=== PATIENT | female | born 1995 | race Asian ===

== ENCOUNTER → 2016-08-30 11:19 | Emergency (ER) | payer OTHER ==
[2016-08-30 11:30] VITALS: BP 135/73
--- NOTE | 2016-08-30 12:04 | ED ---
Lower Extremity - History of Current Complaint Chief Complaint: EDExtremityLower Stated Complaint: BOTH ANKLES SWOLLEN Time Seen by Provider: 08/30/16 11:35 Hx Obtained From: Patient Mechanism Of Injury: Fall From Height Of: - 3.5 foot wall after jumping edge of it Onset of Pain: Immediate - last night, was able to walk home with pain, this am very swollen and black and blue and swelling Onset/Duration: Hours - 12 Severity Initially: Moderate Severity Currently: Mild Pain Intensity: 3 Location: Is Discrete @ - bilateral ankle/feet Character Of Pain: Throbbing, Stiffness Associated Signs And Symptoms: Positive: Swelling, Bruising Aggravating Factor(s): Standing, Ambulation Alleviating Factor(s): Rest, Elevation, Ice Able to Bear Weight: Yes - with pain and support PMH/Surg Hx/FS Hx/Imm Hx Previously Healthy: Yes Endocrine/Hematology History: Denies: Hx Blood Disorders Cardiovascular History: Denies: Hx Hypertension Respiratory History: Denies: Hx Asthma GI History: Denies: Other GI Disorders History: Denies: Other Problems/Disorders Musculoskeletal History: Denies: Other Musculoskeletal History Neurological History: Denies: Other Neuro Impairments/Disorders Psychiatric History: Denies: Hx Anxiety, Hx Depression - Immunization History Immunizations Up to Date: Yes - 2015 Infectious Disease History: No Infectious Disease History: Denies: Traveled Outside the [place] in Last 30 Days - Family History Known Family History: Positive: None - Social History Occupation: Student Lives: With Family Alcohol Use: None Hx Substance Use: No Smoking Status (MU): Never Smoked Tobacco Review of Systems Constitutional: Negative Cardiovascular: Negative Respiratory: Negative Gastrointestinal: Negative Musculoskeletal: Other - bilateral ankle/foot pain Positive: Bruising, Other - abrasions feet Neurological: Negative Psychological: Normal All Other Systems Reviewed And Are Negative: Yes Physical Exam Triage Information Reviewed: Yes Vital Signs On Initial Exam: Initial Vitals Temp Pulse Resp BP Pulse Ox 99.9 F 111 20 135/73 100 08/30/16 11:25 08/30/16 11:25 08/30/16 11:25 08/30/16 11:25 08/30/16 11:25 Vital Signs Reviewed: Yes Appearance: Positive: Well-Appearing, No Pain Distress, Well-Nourished Skin: Positive: Warm, Skin Color Reflects Adequate Perfusion, Dry Respiratory/Lung Sounds: Positive: Clear to Auscultation Cardiovascular: Positive: Normal, RRR, Pulses are Symmetrical in both Upper and Lower Extremities Musculoskeletal: Positive: Other - R ankle/foot swollen, ecchymotic, painful, also abrasion lateral R foot L ankle/foot swollen and ecchymotic decreased ROM bilateral ankles Neurological: Positive: Normal, Sensory/Motor Intact, Alert, Oriented to Person Place, Time Psychiatric: Positive: Normal Diagnostics - Vital Signs Vital Signs Temp Pulse Resp BP Pulse Ox 08/30/16 11:25 99.9 F 111 20 135/73 100 - Laboratory Lab Statement: Any lab studies that have been ordered have been reviewed, and results considered in the medical decision making process. Lower Extremity Course/Dx - Diagnoses Differential Diagnosis/HQI/PQRI: Positive: Contusion, Dislocation, Fracture ( Closed), Sprain, Strain Provider Diagnoses: Foot abrasion, Foot fracture Discharge - Discharge Plan Condition: Stable Disposition: HOME Patient Education Materials: Foot Fracture in Adults (ED) Referrals: [facility] [Primary Care Provider] - Aliyah Paul MD [Medical Doctor] - (call Thursday) Additional Instructions: Ice and elevate your feet use rebeka, post op shoe and crutches ibuprofen or tylenol as directed for pain Make sure you follow-up with orthopedic doctor- call on Thursday09/01/16
--- NOTE | 2016-08-30 13:50 | RAD ---
Indication: Bilateral ankle and foot pain post fall last night. Comparison: None. Technique: Bilateral AP, mortise, and oblique views of the ankles and bilateral AP, lateral, and oblique views of the feet. Report: RIGHT ankle and foot: Significant soft tissue swelling about the RIGHT ankle most marked over the lateral malleolus. The ankle mortise is congruent. Fracture of the posterior talus process with up to 2 mm articular surface incongruity due to posterior displacement. No additional fracture evident about the RIGHT ankle. Talocrural joint effusion. Subsegmental nondisplaced transverse fractures at the fifth metatarsal including at the tuberosity centered 1.1 cm distal to the proximal margin of the tuberosity and at the proximal metaphysis. Normal articular alignment throughout the RIGHT foot. Soft tissue swelling over the dorsum of the foot. LEFT ankle and foot: Normal articular alignment at the LEFT ankle. Negative for fracture. Mild soft tissue swelling. No suggestion of talocrural joint effusion. On the oblique view of the foot there is indeterminant lucency at the proximal subchondral bone of the navicula. While this may represent normal variation a nondisplaced intra-articular fracture of the navicula is not excluded. Normal articular alignment throughout the LEFT foot. Unremarkable soft tissue contours about the LEFT foot. IMPRESSION: 1. Potential lateral supporting ligament injuries at the RIGHT ankle. 2. RIGHT posterior talar process fracture with mild displacement. 3. RIGHT fifth metatarsal fractures without displacement as described. 4. Potential intra-articular fracture at the LEFT navicula. As this lucency may represent normal variation correlate with clinical assessment.
== END | disposition home or self-care (01) ==
LOC: ED 11:19
DX: S92.354A Nondisplaced fracture of fifth metatarsal bone, right foot, initial encounter for closed fracture (principal); S90.812A Abrasion, left foot, initial encounter; S90.811A Abrasion, right foot, initial encounter; W19.XXXA Unspecified fall, initial encounter; Y93.9 Activity, unspecified; Y92.9 Unspecified place or not applicable; Y99.9 Unspecified external cause status
CPT/HCPCS: 99282

== ENCOUNTER 2017-01-22 11:27 | Emergency (ER) | payer OTHER ==
[2017-01-22 13:44] VITALS: BP 115/83
--- NOTE | 2017-02-22 08:48 | UC ---
Rohini Fenton SooYoung, scribed for Lana Olivia DO on 01/22/17 at 1336 . Respiratory Complaint HPI - HPI Summary HPI Summary: A 22 y/o F presents to [facility] with c/o R eye swelling and discharge first noticed this AM when she woke up. Pt has had an URI for approx the past week with sx of sore throat, still present; subjective fever since resolved. R eye pain is rated as 2/10. Sore throat is rated as a 5/10. Pt wears contacts, is wearing glasses at bedside. Denies: abd pain, n/v/d, dysuria. - History of Current Complaint Chief Complaint: UCRespiratory Stated Complaint: URI Time Seen by Provider: 01/22/17 12:35 Hx Obtained From: Patient Hx Last Menstrual Period: 12/26/16 Onset/Duration: Sudden Onset, Lasting Hours - Eye sx, this AM, Lasting Weeks - URI, one week, Still Present Timing: Constant Severity Initially: Moderate Severity Currently: Moderate Pain Intensity: 2 - eye discomfort Pain Scale Used: 0-10 Numeric Associated Signs And Symptoms: Positive: URI - Allergies/Home Medications Allergies/Adverse Reactions: Allergies Allergy/AdvReac Type Severity Reaction Status Date / Time No Known Allergies Allergy Verified 01/22/17 11:38 PMH/Surg Hx/FS Hx/Imm Hx - Additional Past Medical History Additional PMH: EENT: Glasses. Previously Healthy: Yes Cardiovascular History: Other Other Cardiovascular History: neg: HTN Respiratory History: Other Other Respiratory History: neg: asthma - Surgical History Surgical History: None - Family History Known Family History: Positive: None Negative: Cardiac Disease, Hypertension, Diabetes - Social History Occupation: Student Lives: With Family Alcohol Use: Occasionally Substance Use Type: None Smoking Status (MU): Never Smoked Tobacco Review of Systems Constitutional: Fever - subjective, since resolved Skin: Negative Eyes: Drainage - R, Eye Redness - R, Other - R swelling ENT: Sore Throat Respiratory: Negative Cardiovascular: Negative Gastrointestinal: Negative Genitourinary: Negative Motor: Negative Neurovascular: Negative Musculoskeletal: Negative Neurological: Negative Psychological: Negative All Other Systems Reviewed And Are Negative: Yes Physical Exam Triage Information Reviewed: Yes Appearance: Well-Appearing, No Pain Distress, Well-Nourished Vital Signs: Initial Vital Signs Temp 98.2 F 01/22/17 11:39 Pulse 84 01/22/17 11:39 Resp 18 01/22/17 11:39 BP 127/81 01/22/17 11:39 Pulse Ox 100 01/22/17 11:39 Vital Signs Reviewed: Yes Eyes: Positive: Conjunctiva Inflamed - R eye, Discharge - minimal purulent drainage ENT: Positive: Hearing grossly normal, Pharyngeal erythema, Tonsillar swelling, Tonsillar exudate. Negative: Muffled/hoarse voice Neck exam: Normal Neck: Positive: Supple Respiratory: Positive: Lungs clear, Normal breath sounds, No respiratory distress, No accessory muscle use Cardiovascular: Positive: RRR, No Murmur Musculoskeletal Exam: Normal Musculoskeletal: Positive: Strength Intact Neurological: Positive: Alert, Muscle Tone Normal Psychological Exam: Normal Psychological: Positive: Age Appropriate Behavior Skin Exam: Normal, Other - warm, dry, nml color UC Diagnostic Evaluation - Laboratory O2 Sat by Pulse Oximetry: 100 Respiratory Course/Dx - Course Course Of Treatment: Elevated blood pressure noted. Medications reviewed this visit. Rapid strep test is negative. - Differential Dx/Diagnosis Provider Diagnoses: 1. conjunctivitis. 2. Elevated blood pressure without diagnosis of hypertension. Discharge - Discharge Plan Condition: Stable Disposition: HOME Prescriptions: Moxifloxacin 0.5% OPHTH(NF) [Vigamox 0.5% OPHTH(NF)] 0.5 % OP TID #1 bottle Patient Education Materials: Conjunctivitis (ED) Forms: *School Release Referrals: [facility] [Primary Care Provider] - If Needed Additional Instructions: USE EYE DROPS DIRECTED FOR EYE INFECTION Your blood pressure was elevated at this visit. That does not mean you have hypertension, it is probably due to your current condition. Please follow up with your primary care provider. Return to Urgent Care if you have any new or worsening symptoms. The documentation as recorded by the Rohini shaffer SooYoung accurately reflects the service I personally performed and the decisions made by , Lana Olivia DO.
== END 2017-01-22 14:16 | disposition home or self-care (01) ==
LOC: UCEAST 11:27
DX: H10.31 Unspecified acute conjunctivitis, right eye (principal); R03.0 Elevated blood-pressure reading, without diagnosis of hypertension
CPT/HCPCS: 87651; 99212; G0463